=== PATIENT | male | born 1995 | race Caucasian/White ===

== ENCOUNTER 2018-10-08 18:18 | Emergency (ER) | payer OTHER ==
[~2018-10-08] VITALS: Ht 175.3 cm; Wt 71.7 kg
[2018-10-08] MEDS ORDERED: CEFDINIR300 MG PO (19:21)
[2018-10-08] MEDS ORDERED: PROZAC20 MG PO (19:21)
[2018-10-08] MEDS ORDERED: TESSALON PERLE100 MG PO (19:21)
[2018-10-08] MEDS ORDERED: PROSCAR 5MG TABL5 MG PO (19:22)
[2018-10-08] MEDS ORDERED: ATIVAN0.5 MG PO (19:22)
[2018-10-08 19:30] LABS: ABSOLUTE NEUTROPHILS 5.7 thou/uL (1.4-8.2); BASOPHILS 0.5 % (0.0-2.0); EOSINOPHILS 0.6 % (0.0-3.0); HEMATOCRIT 44.6 % (42.0-52.0); HEMOGLOBIN 15.3 gm/dL (14.0-18.0); LYMPHOCYTES 18.1 % (24.0-44.0); MCH 31.4 pg (26.0-34.0); MCHC 34.2 g/dL (28.0-37.0); PLATELET COUNT 208 thou/uL (150-400); POLYS 72.8 % (36.0-66.0); RBC 4.85 mil/uL (4.50-6.00); WBC 7.8 thou/uL (4.0-11.0)
[2018-10-08 19:36] LABS: CALCIUM 9.2 mg/dL (8.5-10.1); CREATININE 1.1 mg/dL (0.7-1.3); POTASSIUM 4.2 mmol/L (3.5-5.1)
[2018-10-08] MEDS ORDERED: VENTOLIN HFA 1818 GM INH (20:04)
[2018-10-08] MEDS ORDERED: GUAIFEN-CODEINE10 ML PO (20:04)
[2018-10-08 21:28] VITALS: BP 113/83
== END 2018-10-08 21:48 | disposition home or self-care (01) ==
LOC: ER 18:18
PROVIDERS: Nurse Practitioner Family
DX: J40 Bronchitis, not specified as acute or chronic (principal)